=== PATIENT | male | born 1960 | race Caucasian/White ===

== ENCOUNTER → 2017-06-26 | Outpatient (CLI) | payer BC ==
[~2017-06-26] MED LIST: AMB10 PO; LRT5 PO; TRAZ50TA35 PO
--- NOTE | 2017-06-26 08:39 | DIAGNOSTIC IMAGING REPORT ---
(BARIUM SWALLOW) ESOPHAGUS CLINICAL HISTORY: 56 years-old Male presenting with K21.9 Laryngopharyngeal -QFNN-TED MALE WITH LARYNGOPHARY. TECHNIQUE: A standard air contrast barium esophagram is performed. Multiple spot images of the esophagus are acquired both upright and prone. COMPARISON: 04/16/2016. FINDINGS: The patient was able to ingest barium and the barium pill without difficulty. Normal mucosal pattern although tertiary contractions noted. No evidence of intrinsic or extrinsic mass lesion. No aspiration observed. The gastroesophageal junction distended normally. No gastroesophageal reflux could be elicited despite provocative maneuvers. Fluoroscopy dosage (mGy): Not available. Fluoroscopy time: 1.2 minutes. Number of fluoroscopic spot images: 23. IMPRESSION: Tertiary contractions in the esophagus suggests dysmotility, likely presbyesophagus. Otherwise normal fluoroscopic examination of the esophagus. Electronically signed by: Ramakrishna Marcum M.D. 06/26/2017 8:37 AM Dictated Date/Time: 06/26/2017 8:36 AM
== END | disposition home or self-care (01) ==
LOC: C.RAD 07:50
DX: K21.9 Gastro-esophageal reflux disease without esophagitis (principal)